=== PATIENT | female | born 1955 | race Caucasian/White ===

== ENCOUNTER 2022-06-12 09:08 | Outpatient (CLI) | payer MEDICARE, SELFPAY ==
--- NOTE | 2022-06-12 09:00 | DI.RAD_ITS ---
Exam(s) XR SHOULDER RT COMPLETE 2+V EXAM: XR SHOULDER RT COMPLETE 2+V CLINICAL HISTORY: right shoulder pain. TECHNIQUE: 2D digital imaging was performed of the right shoulder. Four images were obtained. AP, Y-view and axillary views were obtained. COMPARISON: No exams were available for comparison FINDINGS: BONES: No acute fracture is present. No bony destructive lesion is seen. JOINTS: No dislocation present. Degenerative changes are seen at the shoulder particularly at the gre ater tuberosity and glenohumeral joint. SOFT TISSUE: Normal. IMPRESSION: Degenerative changes of the shoulder. DATA REPOSITORY: RADIATION DOSE DELIVERED:
== END 2022-06-12 09:09 | disposition home or self-care (01) ==
LOC: DIORS 09:08
PROVIDERS: Visit Provider Student in an Organized Health Care Education/Training Program
DX: M19.011 Primary osteoarthritis, right shoulder; M75.101 Unspecified rotator cuff tear or rupture of right shoulder, not specified as traumatic; M75.51 Bursitis of right shoulder; G95.9 Disease of spinal cord, unspecified
CPT/HCPCS: 99204; 73030

== ENCOUNTER → 2022-06-28 13:48 | Outpatient (BNVA) | payer MEDICARE, SELFPAY | PROVIDERS: Referring Provider Student in an Organized Health Care Education/Training Program; Visit Provider Psychiatry & Neurology Neurology | DX: M79.601 Pain in right arm (principal); R20.0 Anesthesia of skin; R26.89 Other abnormalities of gait and mobility; R01.1 Cardiac murmur, unspecified | CPT/HCPCS: 99214 ==

== ENCOUNTER → 2022-07-05 01:08 | Outpatient (CLI) | payer MEDICARE, SELFPAY ==
--- NOTE | 2022-07-05 08:20 | DI.MRI_ITS ---
Exam(s) MR UPPER JOINT RT WO EXAM: MR UPPER JOINT RT WO CLINICAL HISTORY: R SHOULDER PAIN,BURSITIS RT RTC,ARTHRITIS RT GLENOHUMERAL JOINT,M19.011. TECHNIQUE: Multiplanar multisequence MRI was performed. COMPARISON: Plain films 12 June 2022 FINDINGS: BONES: There is no fracture or contusion pattern. Linear defects in region of greater tuberosity cons istent with previous rotator cuff repair. Small adjacent metallic artifacts. Few subchondral cysts are noted in the humeral head. JOINTS:The acromioclavicular joint shows mild spurring but no definite impingement. The glenohumeral joint shows a small amount of fluid. TENDONS: Supraspinatus: Metallic artifacts and thickening. No evidence of tear. Infraspinatus: Unremarkable. Subscapularis: Unremarkable. Teres Minor: Unremarkable. Biceps and [place]: Unremarkable. MUSCLES: Mild diffuse muscular atrophy consistent with disuse. GLENOID LABRUM: Degenerative changes. No tear visible. SOFT TISSUES: Unremarkable. OTHER: Subacromial and subdeltoid bursae show a minimal amount of fluid.. IMPRESSION: Prior rotator cuff repair. Some thickening is noted in the supraspinatus tendon but there is no evid ence of tear. Small joint effusion and small amount of fluid in the sub acromial subdeltoid bursa. DATA REPOSITORY:
== END ==
PROVIDERS: Visit Provider Student in an Organized Health Care Education/Training Program
DX: M19.011 Primary osteoarthritis, right shoulder (principal); M75.51 Bursitis of right shoulder
CPT/HCPCS: 73221

== ENCOUNTER 2022-07-24 01:30 | Outpatient (CLI) | payer MEDICARE, SELFPAY ==
--- NOTE | 2022-07-24 08:15 | DI.MRI_ITS ---
Exam(s) MR CERVICAL SPINE WO EXAM: MR CERVICAL SPINE WO CLINICAL HISTORY: recurrent sx; prior C4-7 ACDF,cervical myelopathy,g95.9 TECHNIQUE: Multiplanar multisequence MRI of the cervical spine was performed without intravenous con trast. COMPARISON: No exams were available for comparison FINDINGS: BONES: Vertebral body heights are maintained. Intervertebral disc spaces are normal. There may be norm y mild posterior subluxation of C3 on C4. Bone marrow signal intensity is within normal limits. Posts urgical changes of ACDF from C4 through C7. CERVICAL CORD: Craniovertebral junction is unremarkable. The cervical cord is normal size and signal intensity. SOFT TISSUES: Unremarkable. C2-3: No disc herniation or bulge is identified. No significant central spinal canal or neural forami nal stenosis. C3-4: There is prominence of the osteophyte disc complex. It does narrow the AP diameter of the spin al canal to 6.8 mm. It causes a indentation on the anterior spinal cord. There is normal signal in the spinal cord. Moderately severe left and moderate right neural foraminal stenosis is present. C4-5: No disc herniation or bulge is identified. No significant central spinal canal stenosis. There is moderate bilateral neural foraminal narrowing. C5-6: No disc herniation or bulge is identified. No significant central spinal canal stenosis. There is [id number] bilateral neural foraminal narrowing. C6-7: No disc herniation or bulge is identified. No significant central spinal canal or neural forami nal stenosis C7-T1: No disc herniation or bulge is identified. No significant central spinal canal or neural lee inal stenosis IMPRESSION: 1. Status post C4 through C7 ACDF. 2. Prominence of the osteophyte disc complex at C3-C4 causing mild narrowing of the central spinal ca nal. There is moderately severe left and moderate right neural foraminal stenosis at this level as w ell. 3. Multilevel neural foraminal stenosis as described above. 4. Mild intended tace geronimo of the anterior spinal cord at C3-C4 due to the degenerative changes. The re is normal signal throughout the spinal cord. DATA REPOSITORY:
== END 2022-07-24 01:50 ==
LOC: DI 01:30
PROVIDERS: Visit Provider Psychiatry & Neurology Neurology
DX: M48.02 Spinal stenosis, cervical region (principal)
CPT/HCPCS: 72141

== ENCOUNTER 2022-08-17 00:22 | Outpatient (CLI) | payer MEDICARE, SELFPAY ==
--- NOTE | 2022-08-17 09:00 | DI.RAD_ITS ---
Exam(s) RF BARIUM SWALLOW EXAM: RF BARIUM SWALLOW CLINICAL HISTORY: DYSPHAGIA, R13.10 TECHNIQUE: 2D and realtime digital imaging was performed. Performed standing CONTRAST MATERIAL: Oral barium Oral water soluble contrast was administered. COMPARISON: None FINDINGS: There is an anterior fusion plate from C4 through C7 which appears intact. No prevertebral soft tiss ue swelling. There is mild disc space narrowing at C3-4. Esophagram was performed standing. Swallowing mechanism appears grossly intact. There is no aspiration evident. No evidence of promine nt stricture nor hypertense upper esophageal sphincter and no evidence of Zenker's diverticulum. There is a small pulsion diverticulum seen in the lower 3rd of the esophagus off the anterolateral wa ll as seen on oblique images. This is approximately 7 cm above the GE junction. The GE junction its elf appears unremarkable with no stricture or hiatal hernia demonstrated. IMPRESSION: 1. Grossly intact swallowing mechanism no evidence of proximal stricture nor indentation of the bariu m column by the multilevel anterior fusion hardware which extends from C4 through C7. 2. No evidence of Zenker's diverticulum. 3. In the lower half of the esophagus approximately 7 cm above the GE junction there is a small diver ticulum noted. RADIATION DOSE DELIVERED: mikael Stewart=9.04 mGy
[2022-08-17] MEDS: Barium Sulfate 700 MG TAB PO (10:12)
[2022-08-17] MEDS: Barium Sulfate 98% W/W 140 ML BTL PO (10:12)
[2022-08-17] MEDS: Barium Sulfate 60% W/V 355 ML BTL PO (10:14)
== END 2022-08-17 00:42 ==
LOC: DI 00:22
PROVIDERS: Visit Provider Physician Assistant Surgical
DX: R13.10 Dysphagia, unspecified (principal); R93.89 Abnormal findings on diagnostic imaging of other specified body structures
CPT/HCPCS: 74221; J3490

== ENCOUNTER 2022-10-19 02:47 | Outpatient (CLI) | payer MEDICARE, SELFPAY ==
[2022-10-19 13:40] LABS: Alkaline Phosphatase 68 U/L (46-116); CREATININE 0.8 mg/dL (0.55-1.02); Calcium 8.9 mg/dL (8.5-10.1); Estimated GFR 79.71 (mL/min/1.73m2); PHOSPHORUS 3.3 mg/dL (2.6-4.7)
[2022-10-19 14:33] LABS: Vitamin D 25 Total 32.6 ng/mL (30-100)
[2022-10-21 09:39] LABS: Parathyroid Hormone,Intact 72 pg/mL (19-88)
== END 2022-10-19 02:48 | disposition home or self-care (01) ==
PROVIDERS: Nurse Practitioner Family
DX: E55.9 Vitamin D deficiency, unspecified (principal); M81.0 Age-related osteoporosis without current pathological fracture
CPT/HCPCS: 36415; 82306; 82310; 82565; 83970; 84075; 84100

== ENCOUNTER 2022-10-23 11:48 | Outpatient (CLI) | payer MEDICARE, SELFPAY ==
--- NOTE | 2022-10-23 11:00 | DI.RAD_ITS ---
Exam(s) XR SHOULDER LT COMPLETE 2+V EXAM: XR SHOULDER LT COMPLETE 2+V CLINICAL HISTORY: left shoulder pain. TECHNIQUE: 2D digital imaging was performed. COMPARISON: CR XR SHOULDER RT COMPLETE 2+V from 06/12/2022 FINDINGS: Two views: No evidence of fracture or dislocation. No abnormal soft tissue calcifications. Minimal degenerative changes. IMPRESSION: DATA REPOSITORY: RADIATION DOSE DELIVERED:
== END 2022-10-23 11:49 | disposition home or self-care (01) ==
LOC: DIORS 11:48
PROVIDERS: PCP Internal Medicine; Referring Provider Internal Medicine; Visit Provider Student in an Organized Health Care Education/Training Program
DX: M75.101 Unspecified rotator cuff tear or rupture of right shoulder, not specified as traumatic (principal); M75.102 Unspecified rotator cuff tear or rupture of left shoulder, not specified as traumatic; M12.811 Other specific arthropathies, not elsewhere classified, right shoulder; M12.812 Other specific arthropathies, not elsewhere classified, left shoulder; G95.9 Disease of spinal cord, unspecified
CPT/HCPCS: 20610; 99213; 73030; J1030

== ENCOUNTER 2022-11-22 02:47 | Outpatient (CLI) | payer MEDICARE, SELFPAY ==
[2022-11-22 10:36] LABS: Abs Immature Grans 0.01 10^3/uL (0.0-0.06); Absolute Basophil Count 0.03 10^3/uL (0.0-0.2); Absolute Eosinophil Count 0.09 10^3/uL (0.0-0.7); Absolute Lymphocyte Count 2.15 10^3/uL (1.2-3.4); Absolute Monocyte Count 0.54 10^3/uL (0.1-0.8); Basophils % 0.5; Eosinophils % 1.6; HCT 40.9 % (36.0-46.0); Immature Grans % 0.2; Lymphocytes % 38.9; MCH 31.7 pg (27.0-33.0); MCHC 34.2 % (32.0-36.0); MCV 93 fL (80-95); MPV 11.8 fL (8.0-11.0); Monocytes % 9.8; Platelet Count 186 10^3/uL (130-400); RBC 4.41 10^6/uL (3.93-5.22); RDW 12.1 % (11.7-14.6); RDW-SD 41.3 fL; WBC 5.52 10^3/uL (4.4-10.8)
[2022-11-22 10:41] LABS: ESR 1 mm/hr (0-30)
[2022-11-22 11:12] LABS: C-Reactive Protein < 0.05 mg/dL (0.0-0.3)
== END 2022-11-22 02:48 | disposition home or self-care (01) ==
LOC: LBO 02:47
PROVIDERS: PCP Internal Medicine; Visit Provider Student in an Organized Health Care Education/Training Program
DX: M12.811 Other specific arthropathies, not elsewhere classified, right shoulder (principal); M12.812 Other specific arthropathies, not elsewhere classified, left shoulder; M75.101 Unspecified rotator cuff tear or rupture of right shoulder, not specified as traumatic; M75.102 Unspecified rotator cuff tear or rupture of left shoulder, not specified as traumatic; M25.512 Pain in left shoulder; M25.511 Pain in right shoulder
CPT/HCPCS: 36415; 85652; 85025; 86140

== ENCOUNTER → 2023-01-29 11:10 | Outpatient (BNVA) | payer MEDICARE, SELFPAY | PROVIDERS: PCP Internal Medicine; Referring Provider Internal Medicine; Visit Provider Student in an Organized Health Care Education/Training Program | DX: G95.9 Disease of spinal cord, unspecified (principal); M75.101 Unspecified rotator cuff tear or rupture of right shoulder, not specified as traumatic; M75.102 Unspecified rotator cuff tear or rupture of left shoulder, not specified as traumatic; M12.811 Other specific arthropathies, not elsewhere classified, right shoulder; M12.812 Other specific arthropathies, not elsewhere classified, left shoulder | CPT/HCPCS: 99213 ==

== ENCOUNTER → 2023-02-11 14:52 | Outpatient (BNVA) | payer MEDICARE, SELFPAY | PROVIDERS: PCP Internal Medicine; Visit Provider Psychiatry & Neurology Neurology | DX: G95.9 Disease of spinal cord, unspecified (principal); Z98.1 Arthrodesis status; R01.1 Cardiac murmur, unspecified | CPT/HCPCS: 99213 ==

== ENCOUNTER 2023-04-02 08:16 | Outpatient (CLI) | payer MEDICARE, SELFPAY ==
[2023-04-02 08:33] LABS: Abs Immature Grans 0.03 10^3/uL (0.0-0.06); Absolute Basophil Count 0.04 10^3/uL (0.0-0.2); Absolute Eosinophil Count 0.09 10^3/uL (0.0-0.7); Absolute Lymphocyte Count 1.64 10^3/uL (1.2-3.4); Absolute Monocyte Count 0.48 10^3/uL (0.1-0.8); Absolute Neutrophil Count 2.17 10^3/uL (1.2-6.7); Basophils % 0.9; HCT 39.9 % (36.0-46.0); HGB 13.9 g/dL (11.2-15.7); Immature Grans % 0.7; Lymphocytes % 36.9; MCH 31.8 pg (27.0-33.0); MCHC 34.8 % (32.0-36.0); MCV 91 fL (80-95); MPV 11.8 fL (8.0-11.0); Monocytes % 10.8; Neutrophils % 48.7; Platelet Count 183 10^3/uL (130-400); RBC 4.37 10^6/uL (3.93-5.22); RDW 11.9 % (11.7-14.6); RDW-SD 39.8 fL; WBC 4.45 10^3/uL (4.4-10.8)
[2023-04-02 09:33] LABS: Anion Gap 8.8 mmol/L (3-11); BUN 17 mg/dL (7-18); CO2 27.2 mmol/L (21.0-32.0); CREATININE 0.6 mg/dL (0.55-1.02); Calcium 9.2 mg/dL (8.5-10.1); Calcium 9.4 mg/dL (8.5-10.1); Chloride 104 mmol/L (98-107); Glucose 96 mg/dL (74-106); Potassium 3.7 mmol/L (3.5-5.1); Sodium 140 mmol/L (136-145)
[2023-04-02 10:01] LABS: Vitamin D 25 Total 66.7 ng/mL (30-100)
== END 2023-04-02 08:17 | disposition home or self-care (01) ==
LOC: LBO 08:16
PROVIDERS: PCP Internal Medicine; Visit Provider Internal Medicine Cardiovascular Disease
DX: I34.0 Nonrheumatic mitral (valve) insufficiency (principal); M81.0 Age-related osteoporosis without current pathological fracture
CPT/HCPCS: 36415; 80048; 82306; 82310; 82565; 85025

== ENCOUNTER 2023-05-10 09:06 | Outpatient (CLI) | payer MEDICARE, SELFPAY ==
--- NOTE | 2023-05-10 09:10 | DI.RAD_ITS ---
Exam(s) XR KNEE LT 4V AP,LAT,MARCELLA,PAT EXAM: XR KNEE LT 4V AP,LAT,MARCELLA,PAT CLINICAL HISTORY: eval L knee pain. TECHNIQUE: 2D digital imaging was performed. Three views. COMPARISON: No exams were available for comparison FINDINGS: BONES: No acute fracture is present. No bony destructive lesion is seen. Spurring at the tibial spi daryn. JOINTS: The knee is normally aligned. No joint effusion is seen. Mild narrowing of lateral femoral tibial joint space with moderate periarticular spurring.. Moderate narrowing patellofemoral joint wi th mild periarticular spurring.. Mild spurring medial femoral tibial joint. SOFT TISSUE: Normal. IMPRESSION: Moderate degenerative changes. DATA REPOSITORY: RADIATION DOSE DELIVERED:
== END 2023-05-10 09:07 | disposition home or self-care (01) ==
LOC: DIORS 09:07
PROVIDERS: PCP Internal Medicine; Referring Provider Internal Medicine; Visit Provider Student in an Organized Health Care Education/Training Program
DX: M17.12 Unilateral primary osteoarthritis, left knee (principal)
CPT/HCPCS: 99213; 73564

== ENCOUNTER → 2023-05-20 13:29 | Outpatient (BNVA) | payer MEDICARE, SELFPAY | PROVIDERS: PCP Internal Medicine; Referring Provider Internal Medicine; Visit Provider Student in an Organized Health Care Education/Training Program | DX: M17.12 Unilateral primary osteoarthritis, left knee (principal) | CPT/HCPCS: 20610; J1030; J1040 ==

== ENCOUNTER 2023-07-09 16:47 | Outpatient (CLI) | payer MEDICARE, SELFPAY ==
[2023-07-09 15:38] LABS: INR 1.5 (0.9-1.1); Prothrombin Time 14.9 sec (9.1-11.1)
== END 2023-07-09 16:48 | disposition home or self-care (01) ==
LOC: LBO 16:47
PROVIDERS: PCP Internal Medicine; Visit Provider Internal Medicine
DX: I34.0 Nonrheumatic mitral (valve) insufficiency (principal); Z98.890 Other specified postprocedural states
CPT/HCPCS: 36415; 85610

== ENCOUNTER 2023-07-12 13:35 | Outpatient (CLI) | payer MEDICARE, SELFPAY ==
[2023-07-12 13:59] LABS: INR 3.4 (0.9-1.1); Prothrombin Time 30.8 sec (9.1-11.1)
== END 2023-07-12 13:36 | disposition home or self-care (01) ==
PROVIDERS: PCP Internal Medicine; Visit Provider Internal Medicine
DX: I34.89 Other nonrheumatic mitral valve disorders; Z98.890 Other specified postprocedural states
CPT/HCPCS: 36415; 85610

== ENCOUNTER 2023-07-18 10:37 | Outpatient (CLI) | payer MEDICARE, SELFPAY ==
[2023-07-18 13:38] LABS: INR 1.8 (0.9-1.1); Prothrombin Time 17.2 sec (9.1-11.1)
== END 2023-07-18 10:38 | disposition home or self-care (01) ==
LOC: LBO 10:39
PROVIDERS: PCP Internal Medicine; Visit Provider Internal Medicine
DX: Z98.890 Other specified postprocedural states (principal)
CPT/HCPCS: 36415; 85610

== ENCOUNTER 2023-07-25 03:26 | Outpatient (CLI) | payer MEDICARE, SELFPAY ==
[2023-07-25 12:12] LABS: INR 1.7 (0.9-1.1); Prothrombin Time 16.2 sec (9.1-11.1)
== END 2023-07-25 03:27 | disposition home or self-care (01) ==
LOC: LBO 03:26
PROVIDERS: PCP Internal Medicine; Visit Provider Internal Medicine
DX: Z98.890 Other specified postprocedural states (principal)
CPT/HCPCS: 36415; 85610

== ENCOUNTER 2023-08-01 04:54 | Outpatient (CLI) | payer MEDICARE, SELFPAY ==
[2023-08-01 13:34] LABS: INR 1.9 (0.9-1.1); Prothrombin Time 18.5 sec (9.1-11.1)
== END 2023-08-01 04:55 | disposition home or self-care (01) ==
LOC: LBO 04:55
PROVIDERS: PCP Internal Medicine; Visit Provider Internal Medicine
DX: Z98.890 Other specified postprocedural states (principal)
CPT/HCPCS: 36415; 85610

== ENCOUNTER 2023-08-09 01:57 | Outpatient (CLI) | payer MEDICARE, SELFPAY ==
[2023-08-09 14:58] LABS: INR 1.6 (0.9-1.1); Prothrombin Time 15.5 sec (9.1-11.1)
== END 2023-08-09 01:58 | disposition home or self-care (01) ==
PROVIDERS: PCP Internal Medicine; Visit Provider Internal Medicine
DX: Z98.890 Other specified postprocedural states (principal)
CPT/HCPCS: 36415; 85610

== ENCOUNTER 2023-08-14 12:00 | Outpatient (RCR) | payer MEDICARE, SELFPAY ==
--- NOTE | 2023-08-05 15:00 | RT.EKG_ITS ---
APPROVED REPORT Exam: Resting ECG Reason for Exam: Baseline Patient Location: O HR:67 bpm ECG Measurements Heart Rate 67 AXIS CA 140 P 72 QRSd 89 QRS 43 QT 440 T 69 QTc 465 Conclusion Sinus rhythm...normal P axis, V-rate 50- 99 Probable left atrial enlargement...P >50mS, <-0.10mV V1 Baseline wander in lead(s) V5 I have reviewed and interpreted ECG and agree with software generated interpretation.
== END 2023-08-14 23:59 | disposition home or self-care (01) ==
LOC: CR 12:00
PROVIDERS: PCP Internal Medicine; Visit Provider Internal Medicine Interventional Cardiology
DX: Z95.2 Presence of prosthetic heart valve (principal); Z51.89 Encounter for other specified aftercare
CPT/HCPCS: S9472

== ENCOUNTER 2023-08-15 04:23 | Outpatient (CLI) | payer MEDICARE, SELFPAY ==
[2023-08-15 13:15] LABS: INR 1.6 (0.9-1.1); Prothrombin Time 15.6 sec (9.1-11.1)
== END 2023-08-15 04:24 | disposition home or self-care (01) ==
LOC: LBO 04:24
PROVIDERS: PCP Internal Medicine; Visit Provider Internal Medicine
DX: Z98.890 Other specified postprocedural states (principal)
CPT/HCPCS: 36415; 85610

== ENCOUNTER 2023-08-23 02:57 | Outpatient (CLI) | payer MEDICARE, SELFPAY ==
[2023-08-23 14:48] LABS: Prothrombin Time 18.6 sec (9.1-11.1)
== END 2023-08-23 02:58 | disposition home or self-care (01) ==
LOC: LBO 02:57
PROVIDERS: PCP Internal Medicine; Visit Provider Internal Medicine
DX: Z98.890 Other specified postprocedural states (principal)
CPT/HCPCS: 36415; 85610; S9472

== ENCOUNTER 2023-08-26 15:45 | Outpatient (RCR) | payer MEDICARE, SELFPAY | END 2023-09-12 23:59 | disposition home or self-care (01) | LOC: CR 15:45 | PROVIDERS: PCP Internal Medicine; Visit Provider Family Medicine | DX: Z95.2 Presence of prosthetic heart valve (principal); Z51.89 Encounter for other specified aftercare | CPT/HCPCS: S9472 ==

== ENCOUNTER 2023-08-30 02:56 | Outpatient (CLI) | payer MEDICARE, SELFPAY ==
[2023-08-30 15:04] LABS: Prothrombin Time 18.8 sec (9.1-11.1)
== END 2023-08-30 02:57 | disposition home or self-care (01) ==
LOC: LBO 02:56
PROVIDERS: PCP Internal Medicine; Visit Provider Internal Medicine
DX: Z98.890 Other specified postprocedural states (principal)
CPT/HCPCS: 36415; 85610

== ENCOUNTER 2023-09-06 02:40 | Outpatient (CLI) | payer MEDICARE, SELFPAY ==
[2023-09-06 15:57] LABS: INR 1.8 (0.9-1.1); Prothrombin Time 17.4 sec (9.1-11.1)
== END 2023-09-06 02:41 | disposition home or self-care (01) ==
LOC: LBO 02:46
PROVIDERS: PCP Internal Medicine; Visit Provider Internal Medicine
DX: Z98.890 Other specified postprocedural states (principal)
CPT/HCPCS: 36415; 85610

== ENCOUNTER 2023-09-17 04:24 | Outpatient (CLI) | payer MEDICARE, SELFPAY ==
[2023-09-17 15:14] LABS: INR 3.1 (0.9-1.1)
== END 2023-09-17 04:25 | disposition home or self-care (01) ==
LOC: LBO 04:28
PROVIDERS: PCP Internal Medicine; Visit Provider Internal Medicine
DX: Z98.890 Other specified postprocedural states (principal)
CPT/HCPCS: 36415; 85610

== ENCOUNTER → 2024-03-17 14:37 | Outpatient (BNVA) | payer MEDICARE, SELFPAY | PROVIDERS: PCP Internal Medicine; Referring Provider Internal Medicine; Visit Provider Psychiatry & Neurology Neurology | DX: G62.9 Polyneuropathy, unspecified (principal); R47.89 Other speech disturbances; G95.9 Disease of spinal cord, unspecified; R01.1 Cardiac murmur, unspecified; G43.109 Migraine with aura, not intractable, without status migrainosus | CPT/HCPCS: 99213 ==

== ENCOUNTER 2024-04-06 02:08 | Outpatient (CLI) | payer MEDICARE, SELFPAY ==
--- NOTE | 2024-04-06 07:00 | DI.MRI_ITS ---
Exam(s) MR BRAIN WO EXAM: MR BRAIN WO CLINICAL HISTORY: new word finding issues s/p surgery, R47.89 TECHNIQUE: Multiplanar multisequence MRI of the brain was performed. COMPARISON: MR MR CERVICAL SPINE WO from 07/24/2022 FINDINGS: VENTRICLES AND EXTRA AXIAL SPACES: Ventricular size is slightly more prominent than the sulcal size. MIDLINE SHIFT: None. CEREBRAL PARENCHYMA: No focus of restricted diffusion to suggest acute infarct. No space-occupying le raúl identified. There are areas of hyperintense signal seen in the white matter on the FLAIR and T2 weighted images consistent with chronic microvascular ischemic disease. HEMORRHAGE: None. BRAINSTEM/CEREBELLUM: Normal. CALVARIUM: Normal. VISUALIZED PARANASAL SINUSES/MASTOIDS:Clear. EWIIAAPAAYP OF IVORY: Normal flow void. PITUITARY GLAND: Unremarkable. OTHER FINDINGS: None. IMPRESSION: 1. No evidence of an acute infarct. No space-occupying lesion is identified. 2. Ventricular size is slightly more prominent than the sulcal size. Please correlate clinically. 3. Scattered areas of hyperintense signal seen in the white matter on the FLAIR and T2 weighted image s consistent with chronic microvascular ischemic disease. DATA REPOSITORY:
== END 2024-04-06 02:28 ==
LOC: DI 02:09
PROVIDERS: PCP Internal Medicine; Visit Provider Psychiatry & Neurology Neurology
DX: R47.89 Other speech disturbances (principal); I67.82 Cerebral ischemia
CPT/HCPCS: 70551

== ENCOUNTER 2024-04-06 14:49 | Outpatient (CLI) | payer MEDICARE, SELFPAY ==
[2024-04-06 15:08] LABS: Anion Gap 8.8 mmol/L (3-11); BUN 18 mg/dL (7-18); CO2 29.2 mmol/L (21.0-32.0); CREATININE 0.7 mg/dL (0.55-1.02); Calcium 9.7 mg/dL (8.5-10.1); Chloride 104 mmol/L (98-107); Estimated GFR 92.41 (mL/min/1.73m2); Glucose 89 mg/dL (74-106); Potassium 3.4 mmol/L (3.5-5.1); Sodium 142 mmol/L (136-145)
[2024-04-06 16:03] LABS: Vitamin B12 255 pg/mL (193-986)
== END 2024-04-06 14:50 | disposition home or self-care (01) ==
LOC: LBO 14:49
PROVIDERS: Internal Medicine Endocrinology, Diabetes & Metabolism; PCP Internal Medicine; Visit Provider Psychiatry & Neurology Neurology
DX: G62.9 Polyneuropathy, unspecified (principal); M81.0 Age-related osteoporosis without current pathological fracture
CPT/HCPCS: 36415; 80048; 70551; 82607

== ENCOUNTER → 2024-05-21 14:44 | Outpatient (BNVA) | payer MEDICARE, SELFPAY | PROVIDERS: PCP Internal Medicine; Referring Provider Internal Medicine; Visit Provider Psychiatry & Neurology Neurology | DX: G43.109 Migraine with aura, not intractable, without status migrainosus (principal); G95.9 Disease of spinal cord, unspecified; R01.1 Cardiac murmur, unspecified; G62.9 Polyneuropathy, unspecified | CPT/HCPCS: 99213 ==

== ENCOUNTER 2024-06-26 01:19 | Outpatient (CLI) | payer MEDICARE, SELFPAY ==
[2024-06-26 16:52] LABS: Vitamin B12 538 pg/mL (193-986)
== END 2024-06-26 01:20 | disposition home or self-care (01) ==
LOC: LBO 01:19
PROVIDERS: PCP Internal Medicine; Visit Provider Psychiatry & Neurology Neurology
DX: G62.9 Polyneuropathy, unspecified (principal)
CPT/HCPCS: 36415; 82607

== ENCOUNTER 2024-07-16 03:58 | Outpatient (CLI) | payer MEDICARE, SELFPAY ==
[2024-07-16 09:33] LABS: BUN 18 mg/dL (7-18); CREATININE 0.7 mg/dL (0.55-1.02); Calcium 9.6 mg/dL (8.5-10.1); Chloride 107 mmol/L (98-107); Estimated GFR 92.41 (mL/min/1.73m2); Glucose 93 mg/dL (74-106); Potassium 3.9 mmol/L (3.5-5.1); Sodium 144 mmol/L (136-145); Vitamin D 25 Total 57.7 ng/mL (30-100)
[2024-07-18 11:02] LABS: Beta-CrossLaps (B-CTx) 179 pg/mL
[2024-07-21 12:52] LABS: Procollagen I IntactN-Terminal 20 mcg/L
== END 2024-07-16 03:59 | disposition home or self-care (01) ==
LOC: LBO 03:59
PROVIDERS: PCP Internal Medicine; Visit Provider Internal Medicine
DX: M81.0 Age-related osteoporosis without current pathological fracture (principal)
CPT/HCPCS: 36415; 80048; 82306; 82523; 83519; 84080

== ENCOUNTER → 2024-07-17 08:22 | Outpatient (BNVA) | payer MEDICARE, SELFPAY | PROVIDERS: PCP Internal Medicine; Referring Provider Internal Medicine | DX: M17.12 Unilateral primary osteoarthritis, left knee (principal); M75.102 Unspecified rotator cuff tear or rupture of left shoulder, not specified as traumatic; M75.101 Unspecified rotator cuff tear or rupture of right shoulder, not specified as traumatic | CPT/HCPCS: 20610; 99214; J1010 ==

== ENCOUNTER → 2024-11-19 15:12 | Outpatient (BNVA) | payer MEDICARE, SELFPAY | PROVIDERS: PCP Internal Medicine; Referring Provider Internal Medicine; Visit Provider Psychiatry & Neurology Neurology | DX: G95.9 Disease of spinal cord, unspecified (principal); R01.1 Cardiac murmur, unspecified; R47.89 Other speech disturbances; G43.109 Migraine with aura, not intractable, without status migrainosus | CPT/HCPCS: 99213 ==